=== PATIENT | female | born 1980 | race Caucasian/White ===

== ENCOUNTER 2017-11-28 10:33 | Emergency (ER) | payer BC ==
--- NOTE | 2017-11-28 10:51 | UC ---
Skin Complaint HPI - HPI Summary HPI Summary: 37 yo female presents with ?insect bite to right thigh. She tells me that she first noticed a red mildly painful bump on her right thigh 2 days ago. Yesterday got bigger and more painful. Today feels ok. She said that the only reason she is here is because her boyfriend told her to get checked for lyme disease. Denies fever, chills, drainage, or bleeding from the area. Does not remember being bitten by anything or seeing any insect attached to her. - History of Current Complaint Chief Complaint: UCSkin Time Seen by Provider: 11/28/17 10:47 Stated Complaint: TICK BITE Hx Obtained From: Patient Hx Last Menstrual Period: 2 weeks ago Onset/Duration: Sudden Onset Current Severity: None Pain Intensity: 0 - Allergy/Home Medications Allergies/Adverse Reactions: Allergies Allergy/AdvReac Type Severity Reaction Status Date / Time Hayfever, Dust Horses Allergy Congestion Uncoded 03/29/16 13:39 Home Medications: Home Medications LoraTADine TAB(NF) [Claritin 10 MG TAB(NF)] 10 mg PO DAILY 11/28/17 [History Confirmed 11/28/17] Review of Systems Constitutional: Negative Skin: Other - ?insect bite right thigh Respiratory: Negative Cardiovascular: Negative Gastrointestinal: Negative Neurovascular: Negative Neurological: Negative Psychological: Negative All Other Systems Reviewed And Are Negative: Yes PMH/Surg Hx/FS Hx/Imm Hx - Additional Past Medical History Additional PMH: Seasonal allergies Previously Healthy: Yes - Surgical History Surgical History: Yes Surgery Procedure, Year, and Place: ACL- infection afterwards - Family History Known Family History: Positive: None Family History: no medical problems run in family lineage - Social History Alcohol Use: Weekly Substance Use Type: None Smoking Status (MU): Never Smoked Tobacco Physical Exam - Summary Physical Exam Summary: GENERAL: NAD. WDWN. No pain distress. SKIN: Right medial thigh: 1.0cm area of mild ecchymosis - healing. Central bite. No erythema, tenderness, or edema. No streaking, bleeding, or drainage. NECK: Supple. Nontender. No lymphadenopathy. CHEST: No accessory muscle use. Breathing comfortably and in no distress. CV: RRR. Without m/r/g. NEURO: Alert. CN II-XII grossly intact. PSYCH: Age appropriate behavior. Triage Information Reviewed: Yes Vital Signs: Initial Vital Signs Temp 98.3 F 11/28/17 10:39 Pulse 56 11/28/17 10:39 Resp 18 11/28/17 10:39 BP 116/73 11/28/17 10:39 Pulse Ox 100 11/28/17 10:39 Course/Dx - Course Course Of Treatment: Possible insect bite to right thigh. Difficult to tell if this was a tick or not. I discussed risks and rates of tick bites/lyme transmission as well as symptoms of lyme disease. Pt elected to wait and see if she develops any signs/symptoms of lyme before undergoing further eval/ treatment. - Diagnoses Provider Diagnoses: Insect bite right thigh Discharge - Sign-Out/Discharge Documenting (check all that apply): Discharge/Admit/Transfer - Discharge Plan Condition: Stable Disposition: HOME Patient Education Materials: Insect Bite or Sting (ED) Referrals: No Primary Care Phys,NOPCP [Primary Care Provider] - Additional Instructions: If you develop a fever, shortness of breath, chest pain, new or worsening symptoms - please call your PCP or go to the ED. - Billing Disposition and Condition Condition: STABLE Disposition: HOME
== END 2017-11-28 10:55 | disposition home or self-care (01) ==
LOC: UCEAST 10:33
DX: S70.361A Insect bite (nonvenomous), right thigh, initial encounter (principal); Z91.048 Other nonmedicinal substance allergy status; W57.XXXA Bitten or stung by nonvenomous insect and other nonvenomous arthropods, initial encounter; Y92.9 Unspecified place or not applicable
CPT/HCPCS: 99211; G0463

== ENCOUNTER 2018-11-29 08:03 | Emergency (ER) | payer BC ==
[2018-11-29 08:17] VITALS: BP 124/80
== END 2018-11-29 09:02 | disposition left against medical advice (07) ==
LOC: UCEAST 08:03
DX: K08.89 Other specified disorders of teeth and supporting structures (principal); Z53.21 Procedure and treatment not carried out due to patient leaving prior to being seen by health care provider

== ENCOUNTER 2018-11-29 09:21 | Emergency (ER) | payer BC ==
[2018-11-29] MEDS ORDERED: Clindamycin 600 MG/D5W BAG(*) 600 MG/50 ML BAG IV ONE (10:03)
[2018-11-29] MEDS ORDERED: Ketorolac INJ* 30 MG/ML 1 ML VIAL IV PUSH ONE (10:03)
--- NOTE | 2018-11-29 10:54 | ED ---
Throat Pain/Nasal Congestion - HPI Summary HPI Summary: 38-year-old female presents with dental pain for the past week. She states she was seen by dentist on Tuesday and recommended she get further imaging and antibiotics as infection continues to worsen over the past couple days. States she's been having pus drainage from the upper jaw. She denies any pain or swelling around eyes. No change in vision. She did have a fever earlier today. She denies any nausea or vomiting. No chest pain or shortness of breath. She is currently on penicillin. Has no medical conditions. 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, 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 Denies: Hx Clostridium Difficile, Hx Hepatitis, Hx Human Immunodeficiency Virus (HIV), Hx Shingles, Hx Tuberculosis, Hx Known/Suspected VRE, Hx Known/ Suspected VRSA, History Other Infectious Disease, Traveled Outside the in Last 30 Days - Family History Known Family History: Positive: None Family History: no medical problems run in family lineage - Social History Alcohol Use: Weekly Substance Use Type: Reports: None Smoking Status (MU): Never Smoked Tobacco Review of Systems Negative: Fever Positive: Dental Pain Negative: Chest Pain Negative: Shortness Of Breath All Other Systems Reviewed And Are Negative: Yes Physical Exam Triage Information Reviewed: Yes Vital Signs On Initial Exam: Initial Vitals Temp Pulse Resp BP Pulse Ox 99.2 F 65 17 137/90 100 11/29/18 09:30 11/29/18 09:30 11/29/18 09:30 11/29/18 09:30 11/29/18 09:30 Vital Signs Reviewed: Yes Appearance: Positive: Well-Appearing Skin: Positive: Warm, Dry Head/Face: Positive: Normal Head/Face Inspection Eyes: Positive: Normal, Conjunctiva Clear ENT: Positive: Pharynx normal, TMs normal, Trismus, Uvula midline. Negative: Muffled voice Neck: Positive: Other: - abscess upper tooth in back of left jaw Respiratory/Lung Sounds: Positive: Clear to Auscultation, Breath Sounds Present Cardiovascular: Positive: Normal, RRR Abdomen Description: Positive: Nontender, Soft Bowel Sounds: Positive: Present Musculoskeletal: Positive: Normal Neurological: Positive: Normal Psychiatric: Positive: Normal Diagnostics - Vital Signs Vital Signs Temp Pulse Resp BP Pulse Ox 11/29/18 09:30 99.2 F 65 17 137/90 100 - Laboratory Result Diagrams: 11/29/18 11:05 11/29/18 11:05 Lab Statement: Any lab studies that have been ordered have been reviewed, and results considered in the medical decision making process. - CT maxillary CT Interpretation Completed By: Radiologist Summary of CT Findings: IMPRESSION: Chronic sinusitis of the maxillary sinuses. There appears to be a dental caries in the left second molar posteriorly. There is a defect in the left maxilla from prior tooth extraction of the third molar.. There is adjacent soft tissue with air and underlying infection is not excluded. Re-Evaluation - Re-Evaluation First Eval Re-Evaluation Time: 11:43 EENT Course/Dx - Course Course Of Treatment: 38-year-old female presents with dental pain for the past week. She states she was seen by dentist on Tuesday and recommended she get further imaging and antibiotics as infection continues to worsen over the past couple days. States she's been having pus drainage from the upper jaw. She denies any pain or swelling around eyes. No change in vision. She did have a fever earlier today. She denies any nausea or vomiting. No chest pain or shortness of breath. She is currently on penicillin. Has no medical conditions. on exam has tenderness in upper jaw, no trismus. wbc normal. crp 8. CT shows dental infection. no fluid collection. will switch patient to clindamycin. patient understand and agrees with plan. - Differential Diagnoses Differential Diagnoses: Dental Abscess, Dental Caries, Sinusitis - Diagnoses Provider Diagnoses: Dental abscess Discharge - Sign-Out/Discharge Documenting (check all that apply): Patient Departure Patient Received Moderate/Deep Sedation with Procedure: No - Discharge Plan Condition: Good Disposition: HOME Prescriptions: Clindamycin Cap(NF) [Clindamycin Cap 300 mg Cap(NF)] 300 mg PO TID #30 cap Patient Education Materials: Dental Abscess (ED) Referrals: Lyric Sam MD [Primary Care Provider] - Additional Instructions: Take clindamycin three times a day for 10 days Take ibuprofen or tyenlol every 6 hours for pain as needed Avoid hard, crunchy food until seen by dentist Return to ED if develop any new or worsening symptoms follow up with oral surgeon - Billing Disposition and Condition Condition: GOOD Disposition: Home
[2018-11-29] MEDS ORDERED: Clindamycin 600 MG IVPREMIX(* 600 MG/50 ML SDV IV ONE (11:00)
[2018-11-29 11:19] LABS: ABS Eosinophils 0.1 10^3/ul (0-0.6); ABS Lymphocytes 1.4 10^3/ul (1.0-4.8); ABS Monocytes 0.5 10^3/ul (0-0.8); ABS Neutrophils 4.2 10^3/ul (1.5-7.7); Eosinophil % 2.1 %; Hematocrit 36 % (35-47); Hemoglobin 12.2 g/dL (12.0-16.0); Lymphocyte % 22.2 %; Mean Corpuscular HGB Conc 34 g/dL (31-36); Mean Corpuscular Hemoglobin 31 pg (27-31); Mean Corpuscular Volume 91 fL (80-97); Mean Platelet Volume 7.7 fL (7.4-10.4); Platelet Count 308 10^3/uL (150-450); Red Cell Distribution Width 13 % (10.5-15); White Blood Count 6.2 10^3/uL (3.5-10.8)
[2018-11-29 11:38] LABS: Albumin 4.5 g/dL (3.2-5.2); Albumin/Globulin Ratio 1.2 (1-3); BUN/Creatinine Ratio 12.7 (8-20); C Reactive Protein 8.34 mg/L (<8.01); Calcium 9.4 mg/dL (8.6-10.3); EGFR African American 99.1 (>60); EGFR Non-African American 81.9 (>60); Globulin 3.7 g/dL (2-4); Potassium 4.2 mmol/L (3.5-5.0); Total Bilirubin 0.4 mg/dL (0.2-1.0); Total Protein 8.2 g/dL (6.4-8.9)
[2018-11-29] MEDS ORDERED: Iohexol 300* (CONTRAST) 10 ML SDV IV ONE ×2 (11:54→11:56)
[2018-11-29 13:03] VITALS: BP 125/81
== END 2018-11-29 13:01 | disposition home or self-care (01) ==
LOC: ED 09:21
DX: K04.7 Periapical abscess without sinus (principal); J32.0 Chronic maxillary sinusitis
CPT/HCPCS: 36415; 70487; 80053; 83605; 85025; 86140; 87040; 96365; 96375; 99282; J1885; Q9967

== ENCOUNTER 2020-08-07 11:45 | Inpatient (IN) ==
[2020-08-07] MEDS ORDERED: Buffered Lidocaine 1% SYRIN 1 ml INTRADERM ONE (12:12)
[2020-08-07] MEDS ORDERED: Lactated Ringers 1000 ml BAG 1,000 ML IV ONE ×2 (12:12→17:28)
[2020-08-07] MEDS ORDERED: Oxytocin 10 UNITS/ML 1 ML VIAL IM ONE (12:15)
[2020-08-07] MEDS ORDERED: Lactated Ringers 1000 ml BAG 1,000 ML IV SCH ×3 (13:00→20:00)
[2020-08-07] MEDS ORDERED: fentaNYL 100 mcg/2 ml 50 MCG/ML VIAL IV SLOW PU PRN (16:07)
[2020-08-07 16:27] LABS: ABS Basophils 0.1 10^3/ul (0-0.2); ABS Lymphocytes 0.8 10^3/ul (1.0-4.8); ABS Monocytes 0.8 10^3/ul (0-0.8); ABS Neutrophils 18.4 10^3/ul (1.5-7.7); Hematocrit 38 % (35-47); Hemoglobin 13.1 g/dL (12.0-16.0); Mean Corpuscular HGB Conc 35 g/dL (31-36); Mean Corpuscular Hemoglobin 32 pg (27-31); Mean Corpuscular Volume 92 fL (80-97); Mean Platelet Volume 8.8 fL (7.4-10.4); Platelet Count 267 10^3/uL (150-450); Red Blood Count 4.08 10^6 /uL (3.70-4.87); Red Cell Distribution Width 12 % (10-15); White Blood Count 20.1 10^3/uL (3.5-10.8)
[2020-08-07] MEDS ORDERED: Bupivacaine 0.25% SDV PF 10 ML VIAL INJ ONE (16:33)
[2020-08-07] MEDS ORDERED: OBEPIDURAL 250 ML EPIDURAL ONE (16:34)
[2020-08-07] MEDS ORDERED: Oxytocin in LR 20 UNITS/1,000 ML BAG IVPB ONE (17:21)
[2020-08-07] MEDS ORDERED: EPHEDrine (Pressors) 50 MG/ML VIAL IV PUSH PRN (17:28)
[2020-08-07] MEDS ORDERED: Sodium Citrate/Citric Acid LIQ 15 ML UDC PO PRN (17:28)
[2020-08-07] MEDS ORDERED: Phenylephrine 40 mcg/mL 10mL (400mcg) SYRINGE IV PUSH PRN (17:28)
[2020-08-07] MEDS ORDERED: Lactated Ringers 1000 ml BAG 500 ML IV PRN (17:28)
[2020-08-07] MEDS ORDERED: OBEPIDURAL 250 ML EPIDURAL SCH (18:00)
[2020-08-07 18:41] LABS: Urine Benzodiazepine Screen None Detected (None Detect); Urine Cannabinoids Screen None Detected (None Detect); Urine Opiates Screen None Detected (None Detect)
[2020-08-07] MEDS ORDERED: Dibucaine 1% OINT 28.35 GM TUBE PR PRN (19:27)
[2020-08-07] MEDS ORDERED: Witch Hazel PAD JAR TOPICAL PRN (19:27)
[2020-08-07] MEDS ORDERED: Oxytocin in LR 20 UNITS/1,000 ML BAG IVPB SCH (20:00)
[2020-08-08 08:15] LABS: ABS Lymphocytes 1.6 10^3/ul (1.0-4.8); ABS Monocytes 1.1 10^3/ul (0-0.8); ABS Neutrophils 15.7 10^3/ul (1.5-7.7); Eosinophil % 0.2 %; Hematocrit 32 % (35-47); Lymphocyte % 8.5 %; Mean Corpuscular HGB Conc 35 g/dL (31-36); Mean Corpuscular Hemoglobin 32 pg (27-31); Mean Corpuscular Volume 93 fL (80-97); Mean Platelet Volume 8.8 fL (7.4-10.4); Platelet Count 218 10^3/uL (150-450); Red Cell Distribution Width 12 % (10-15); White Blood Count 18.4 10^3/uL (3.5-10.8)
[2020-08-09 08:08] VITALS: BP 109/70
== END 2020-08-09 12:05 | disposition home or self-care (01) | DRG 560 ==
LOC: MCHOBOUT 11:45 → MCHOB 12:02
PROVIDERS: ADMIT Midwife; ATTEND Midwife